=== PATIENT | female | born 1960 | race Caucasian/White ===

== ENCOUNTER → 2022-07-31 | Outpatient (CLI) | payer OTHER | LOC: RAD 13:03 | PROVIDERS: ATTEND Physician Assistant | DX: R07.89 Other chest pain (principal) | CPT/HCPCS: 71046 ==

== ENCOUNTER → 2022-08-12 | Outpatient (CLI) | payer OTHER | LOC: MAMMO 10:02 | PROVIDERS: ATTEND Physician Assistant | DX: Z12.31 Encounter for screening mammogram for malignant neoplasm of breast (principal) | CPT/HCPCS: 77067 ==

== ENCOUNTER → 2022-09-10 | Outpatient (CLI) | payer OTHER | LOC: MAMMO 11:12 | PROVIDERS: ATTEND Physician Assistant | DX: N64.89 Other specified disorders of breast (principal); R92.8 Other abnormal and inconclusive findings on diagnostic imaging of breast ==